=== PATIENT | female | born 1955 | race American Indian/Alaskan Native ===

== ENCOUNTER 2020-03-29 11:52 | Emergency (ER) | payer OTHER ==
[2020-03-29 12:17] VITALS: BP 153/82
--- NOTE | 2020-03-29 12:57 | Emergency Department Report ---
Blank Doc - Documentation Documentation: 64-year-old female that presents with left wrist pain. Unsure known of injury. This initial assessment/diagnostic orders/clinical plan/treatment(s) is/are subject to change based on patient's health status, clinical progression and re- assessment by fellow clinical providers in the ED. Further treatment and workup at subsequent clinical providers discretion. Patient/guardians urged not to elope from the ED as their condition may be serious if not clinically assessed and managed. Initial orders include: 1- Patient sent to [facility] for further evaluation and treatment 2- xrays
--- NOTE | 2020-03-29 14:00 | XRay Report ---
LEFT WRIST 4 VIEWS INDICATION: pain w/ decreased rom. COMPARISON: No relevant prior imaging study available. FINDINGS: No acute, displaced fracture or dislocation is seen. Carpal alignment is within normal limits. Mild o steoarthrosis changes. IMPRESSION: 1. No acute findings. Signer Name: Danial Dennison MD Signed: 03/29/2020 1:55 PM Workstation Name: [id number]
[2020-03-29] MEDS ORDERED: IBUPROFEN 800 MG TAB PO ONE (15:16)
--- NOTE | 2020-03-29 15:22 | Emergency Department Report ---
Upper Extremity - HPI Chief Complaint: Extremity Problem,Nontraumatic Stated Complaint: LEFT HAND PAIN Time Seen by Provider: 03/29/20 12:56 Upper Extremity: Left Hand Occurred When: 1 Day Mechanism: Unsure Symptoms: Yes Pain with Movement, Yes Swelling, No Deformity, No Limited Range of Movement, No Numbness, No Weakness, No Bruising/Ecchymosis, No Laceration or Abrasion Other History: 64-year-old female, history of hypertension, presents to ED with left hand pain since last night. Patient reports some mild swelling near the wrist. She denies any trauma. Patient reports mosquito bite 4 days ago, but not in the same area. She denies any fever or redness. She denies any numbness or tingling in the extremity. Patient states she used icy hot last night without relief. Has not used anything else for pain. ED Review of Systems ROS: Stated complaint: LEFT HAND PAIN Other details as noted in HPI Comment: All other systems reviewed and negative Constitutional: denies: chills, fever Musculoskeletal: as per HPI Skin: denies: rash Neurological: denies: weakness, numbness, paresthesias ED Past Medical Hx - Past Medical History Previous Medical History?: Yes Hx Hypertension: Yes - Surgical History Past Surgical History?: No - Social History Smoking Status: Never Smoker Substance Use Type: None - Medications Home Medications: Home Medications Medication Instructions Recorded Confirmed Last Taken Type Naproxen [Naprosyn] 500 mg PO BID #20 tablet 03/29/20 Unknown Rx Upper Extremity Exam - Exam General: Vital signs noted. No distress. Alert and acting appropriately. Head and Torso: No HEENT Abnormality, No Neck Tenderness, No Chest/Lungs Abnormality, No Abdominal Tenderness, No Back Tenderness Shoulder Exam: Yes Normal Range of Motion in Shoulder, No Shoulder Tenderness, No Clavicle Tenderness, No Shoulder Deformity Arm Exam: No Arm/Humerus Tenderness, No Arm Deformity Elbow: Yes Normal Range of Motion in Elbow, No Elbow Tenderness, No Elbow Deformity Forearm: No Forearm Tenderness, No Forearm Deformity, No Pain with Pronation, No Pain with Supination Wrist: Yes Normal ROM in Wrist, No Wrist Tenderness, No Wrist Deformity, No Snuffbox Tenderness, No Pain with Axial Thumb Compression Hand: Yes Hand Tenderness (dorsum of left hand just inferior to wrist near the thumb), Yes Normal ROM in Digit(s), No Hand Deformity, No Digit Tenderness, No Digit(s) Deformity, No Tendon Dysfunction CMS Exam: Yes Normal Distal Pulses, Yes Normal Capillary Refill, Yes Normal Distal Sensation, No Broken Skin ED Course Vital Signs 03/29/20 03/29/20 12:15 13:10 Temperature 98.1 F 98.1 F Pulse Rate 77 Respiratory 18 Rate Blood Pressure 153/82 O2 Sat by Pulse 99 Oximetry ED Medical Decision Making - Radiology Data Radiology results: report reviewed, image reviewed - Medical Decision Making 64-year-old female with hand pain and swelling since yesterday. X-ray shows no acute abnormalities. Patient has mild swelling and point tenderness on exam. Will discharge at this time with orthopedic follow-up. Will be given prescriptions for anti-inflammatory medication. Return precautions given. - Differential Diagnosis arthritis, fracture, ganglion cyst Critical care attestation.: If time is entered above; I have spent that time in minutes in the direct care of this critically ill patient, excluding procedure time. ED Disposition Clinical Impression: Left hand pain Disposition: DC-01 TO HOME OR SELFCARE Is pt being admited?: No Condition: Stable Instructions: Arthralgia (ED) Prescriptions: Naproxen [Naprosyn] 500 mg PO BID #20 tablet Referrals: KIANA SALAS MD [Primary Care Provider] - 3-5 Days CHAPIN SIDHU MD [Staff Physician] - 3-5 Days Time of Disposition: 15:24
== END 2020-03-29 15:33 | disposition home or self-care (01) ==
LOC: ED 11:52
DX: M79.642 Pain in left hand (principal); R22.32 Localized swelling, mass and lump, left upper limb; Z88.6 Allergy status to analgesic agent; I10 Essential (primary) hypertension
CPT/HCPCS: 99283